=== PATIENT | female | born 1995 | race Caucasian/White ===

== ENCOUNTER 2024-05-31 08:28 | Emergency (ER) | payer OTHER, MEDICAID ==
[2024-05-31] MEDS ORDERED: Sulfameth/Trimethoprim DS 800-160mg TAB ONE (08:41)
[2024-05-31] MEDS ORDERED: Amoxicillin/Potassium Clav 875 MG TAB ONE (08:41)
[2024-05-31] MEDS ORDERED: Ibuprofen 600 MG TAB ONE (08:48)
[2024-05-31] MEDS ORDERED: traMADol HCl 50 MG TAB ONE (08:48)
== END 2024-05-31 08:58 | disposition home or self-care (01) ==
LOC: MADERS 08:28
DX: L03.011 Cellulitis of right finger (principal); F17.220 Nicotine dependence, chewing tobacco, uncomplicated
CPT/HCPCS: 99283

== ENCOUNTER 2024-06-02 07:49 | Emergency (ER) | payer OTHER, MEDICAID ==
[2024-06-02] MEDS ORDERED: Cefepime 1 GM VIAL ONE (08:44)
[2024-06-02] MEDS ORDERED: Vancomycin 1 GM VIAL ONE (08:44)
[2024-06-02 08:54] LABS: #Basophils 0.1 thou/uL (0.0-0.2); #Lymphocytes 0.8 thou/uL (1.20-3.40); #Monocytes 0.5 thou/uL (0.11-0.59); #Neutrophils 3.6 thou/uL (1.40-6.50); %Lymphocytes 16.5 % (21.0-51.0); %Monocytes 10.6 % (0.0-10.0); %Neutrophils 71.9 % (42.0-75.0); Hematocrit 44.5 % (36.0-47.0); Hemoglobin 13.7 g/dL (12.0-16.0); Mean Corpuscular HGB CONC 30.7 g/dL (32.0-36.0); Mean Corpuscular Hemoglobin 25.9 pg (27.0-31.0); Mean Corpuscular Volume 84.4 fl (78.0-98.0); Mean Platelet Volume 9.9 fL (7.4-10.4); Platelet Count 209 10x3/uL (130-400); RBC Distribution Width 12.6 % (11.5-14.5); Red Blood Cell (RBC) Count 5.28 mill/uL (4.20-5.40)
[2024-06-02 09:03] LABS: INR-International Normal Ratio 2.4; Prothrombin Time 25.9 sec (12.0-14.7)
[2024-06-02 09:04] LABS: PTT 37.3 sec (22.9-36.1)
[2024-06-02] MEDS ORDERED: HYDROcodone/Acetaminophen 5/325 mg Tablet ONE (09:06)
[2024-06-02] MEDS ORDERED: Boostrix 0.5 ML (Tdap) VIAL (>/=7 yrs of age) ONE (09:06)
[2024-06-02] MEDS ORDERED: Sodium Chloride 0.9% 1,000 ML ONE (09:07)
[2024-06-02] MEDS ORDERED: Sodium Chloride 0.9% 100 ML ONE (09:07)
[2024-06-02 09:13] LABS: ALT (SGPT) 14 U/L (8-55); AST (SGOT) 15 U/L (5-34); Albumin 3.8 g/dL (3.5-5.0); Alkaline Phosphatase 88 U/L (40-110); Anion Gap 17 mmol/L (10-20); BUN (Urea Nitrogen) 15 mg/dL (7.0-18.7); Bilirubin, Total 0.3 mg/dL (0.2-1.2); Calc. Creatinine Clearance 0 mL/min (70-130); Carbon Dioxide 23 mmol/L (22-29); Chloride 104 mmol/L (98-107); Estimated GFR 75; Globulin 2.9 g/dL (2.4-3.5); Glucose 100 mg/dL (70-105); Potassium 4.6 mmol/L (3.5-5.1); Protein, Total 6.7 g/dL (6.0-8.3); Sodium 139 mmol/L (136-145)
[2024-06-02 11:50] LABS: Pregnancy Test - Urine (BHCG) Negative (Negative)
[2024-06-02 11:51] LABS: Pregu Control Background? CLEAR/WHITE (CLR/WHITE); Pregu Control Bar Appear? YES (CONTROL BAR); Specific Gravity 1.017 (1.002-1.036)
[2024-06-02] MEDS ORDERED: Morphine 4 MG/ML VIAL ONE (12:49)
== END 2024-06-02 13:18 | disposition short-term general hospital (02) ==
LOC: MADERS 07:49
DX: L03.113 Cellulitis of right upper limb (principal); L02.511 Cutaneous abscess of right hand; F17.220 Nicotine dependence, chewing tobacco, uncomplicated; M32.9 Systemic lupus erythematosus, unspecified; M79.7 Fibromyalgia; F90.9 Attention-deficit hyperactivity disorder, unspecified type; Z23 Encounter for immunization
CPT/HCPCS: 80053; 81025; 83605; 85025; 85610; 85730; 87040; 90471; 90715; 96365; 96366; 96367; 96375; J0692; J2270; J3370; J7030

== ENCOUNTER 2024-12-25 12:34 | Emergency (ER) | payer OTHER, MEDICAID | END 2024-12-25 13:02 | disposition home or self-care (01) | LOC: MADERS 12:34 | DX: T23.251A Burn of second degree of right palm, initial encounter (principal); F17.220 Nicotine dependence, chewing tobacco, uncomplicated; X15.8XXA Contact with other hot household appliances, initial encounter; Y93.G3 Activity, cooking and baking | CPT/HCPCS: 99283 ==

== ENCOUNTER 2025-03-08 08:18 | Outpatient (CLI) | payer OTHER, MEDICAID ==
[2025-03-08 08:40] LABS: INR-International Normal Ratio 2.1; Prothrombin Time 23.5 sec (12.0-14.7)
== END 2025-03-08 08:19 | disposition home or self-care (01) ==
LOC: MADLAB 08:18
PROVIDERS: ATTEND Internal Medicine Cardiovascular Disease
DX: D68.61 Antiphospholipid syndrome (principal); D68.62 Lupus anticoagulant syndrome; Z86.718 Personal history of other venous thrombosis and embolism
CPT/HCPCS: 36415; 85610

== ENCOUNTER 2025-03-22 15:29 | Outpatient (CLI) | payer OTHER, MEDICAID ==
[2025-03-22 16:07] LABS: INR-International Normal Ratio 2.2; Prothrombin Time 24.6 sec (12.0-14.7)
== END 2025-03-22 15:30 | disposition home or self-care (01) ==
LOC: MADLAB 15:29
PROVIDERS: ATTEND Internal Medicine Cardiovascular Disease
DX: D68.61 Antiphospholipid syndrome (principal); D68.62 Lupus anticoagulant syndrome; Z86.718 Personal history of other venous thrombosis and embolism
CPT/HCPCS: 36415; 85610

== ENCOUNTER 2025-04-04 11:34 | Outpatient (CLI) | payer OTHER, MEDICAID ==
[2025-04-04 12:18] LABS: INR-International Normal Ratio 2.0; Prothrombin Time 22.8 sec (12.0-14.7)
== END 2025-04-04 11:35 | disposition home or self-care (01) ==
LOC: MADLAB 11:34
PROVIDERS: ATTEND Internal Medicine Cardiovascular Disease
DX: Z51.81 Encounter for therapeutic drug level monitoring (principal); D68.62 Lupus anticoagulant syndrome; D68.61 Antiphospholipid syndrome; Z86.718 Personal history of other venous thrombosis and embolism; Z79.01 Long term (current) use of anticoagulants
CPT/HCPCS: 36415; 85610

== ENCOUNTER 2025-04-20 15:00 | Outpatient (CLI) | payer OTHER, MEDICAID ==
[2025-04-20 15:23] LABS: INR-International Normal Ratio 2.6; Prothrombin Time 28.1 sec (12.0-14.7)
== END 2025-04-20 15:01 | disposition home or self-care (01) ==
LOC: MADLAB 15:00
PROVIDERS: ATTEND Internal Medicine Cardiovascular Disease
DX: D68.62 Lupus anticoagulant syndrome (principal); Z86.718 Personal history of other venous thrombosis and embolism
CPT/HCPCS: 36415; 85610